=== PATIENT | male | born 1970 | race Caucasian/White ===

== ENCOUNTER → 2018-04-24 | Outpatient (CLI) | payer OTHER ==
[~2018-04-24] MED LIST: ADDERALL XR 1515 MG PO; ADVAIRDISKUS; KEFLEX500 MG PO; NORCO 5-325 TA1 EACH PO
== END ==
LOC: M.RAD 15:34
DX: R06.02 Shortness of breath (principal); R07.89 Other chest pain; R05 Cough

== ENCOUNTER 2019-03-14 15:53 | Emergency (ER) | payer OTHER ==
[~2019-03-14] VITALS: Ht 185.4 cm; Wt 104.6 kg
[2019-03-14] MEDS ORDERED: LISINOPRIL10 MG PO (16:02)
[2019-03-14] MEDS ORDERED: BREO ELLIPTA 11 EACH INH (16:03)
[2019-03-14] MEDS ORDERED: SILVADENE20 GM TOP (17:00)
[2019-03-14] MEDS ORDERED: ERYTHROMYCIN250 MG PO (17:00)
[2019-03-14] MEDS ORDERED: PERCOCET 5-3251 EACH PO (17:00)
[2019-03-14 17:23] VITALS: BP 139/80
== END 2019-03-14 17:25 | disposition home or self-care (01) ==
LOC: M.ERS 15:53
DX: T22.20XA Burn of second degree of shoulder and upper limb, except wrist and hand, unspecified site, initial encounter (principal); T20.10XA Burn of first degree of head, face, and neck, unspecified site, initial encounter; T31.0 Burns involving less than 10% of body surface; F17.200 Nicotine dependence, unspecified, uncomplicated; Z88.0 Allergy status to penicillin